=== PATIENT | female | born 1985 | race Caucasian/White ===

== ENCOUNTER 2016-10-31 01:56 | Emergency (ER) | payer MEDICAID ==
[2016-10-31] MEDS ORDERED: SODIUM CHLORIDE 0.9% 1,000 ML ONE (03:05)
[2016-10-31] MEDS ORDERED: DILAUDID 1 MG/ML AMP ONE (03:25)
== END 2016-10-31 04:13 | disposition home or self-care (01) ==
LOC: ER 01:56
DX: R50.9 Fever, unspecified (principal); G89.18 Other acute postprocedural pain; R10.84 Generalized abdominal pain; N30.20 Other chronic cystitis without hematuria
CPT/HCPCS: 36415; 71020; 80053; 81001; 85025; 87088; 96361; 96374